=== PATIENT | female | born 1975 | race Caucasian/White ===

== ENCOUNTER 2016-09-10 22:04 | Emergency (ER) | payer OTHER ==
[2016-09-10 22:10] VITALS: RESP 20; TEMP 98.8; O2SAT 98
[2016-09-10 23:22] VITALS: BP 119/75; PULSE 85
== END 2016-09-10 23:20 | disposition home or self-care (01) ==
LOC: ED 22:04
DX: S93.401A Sprain of unspecified ligament of right ankle, initial encounter (principal); X50.1XXA Overexertion from prolonged static or awkward postures, initial encounter
CPT/HCPCS: 73610; 99282; 99283; L4350